=== PATIENT | female | born 2000 | race Caucasian/White ===

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

== ENCOUNTER → 2019-05-01 | Outpatient (CLI) | payer OTHER ==
[2019-05-02 12:01] LABS: Candida species (DNA Probe) Negative (NEGATIVE); G. vaginalis (DNA Probe) Positive (NEGATIVE); T. vaginalis (DNA Probe) Negative (NEGATIVE)
[2019-05-03 15:18] LABS: HPV 16 Negative (Negative); HPV 18 Negative (Negative); HPV OTHER HR TYPES Negative (Negative)
== END ==
LOC: LAB 14:08 → LAB SHORT 14:08
PROVIDERS: Nurse Practitioner Family
DX: Z00.00 Encounter for general adult medical examination without abnormal findings (principal); N93.9 Abnormal uterine and vaginal bleeding, unspecified
CPT/HCPCS: 87480; 87510; 87624; 87660; G0145

== ENCOUNTER 2019-06-09 15:44 | Emergency (ER) | payer BC, OTHER ==
[~2019-06-09] VITALS: Ht 162.6 cm; Wt 61.2 kg
== END 2019-06-09 21:39 | disposition home or self-care (01) ==
LOC: ER 15:44
DX: R51 Headache (principal); Z88.2 Allergy status to sulfonamides; Z88.8 Allergy status to other drugs, medicaments and biological substances
CPT/HCPCS: 36415; 96361; 96374; 96375; 99283-25; J1100; J1200; J1885; J2765; J7030

== ENCOUNTER → 2021-11-05 | Outpatient (CLI) | payer OTHER ==
[2021-11-07 16:10] LABS: CHLAMYDIA TRACHOMATIS, NAA Negative (Negative)
== END | disposition home or self-care (01) ==
LOC: LAB 16:58 → LAB SHORT 16:58
PROVIDERS: Advanced Practice Midwife
DX: Z01.419 Encounter for gynecological examination (general) (routine) without abnormal findings (principal); Z11.3 Encounter for screening for infections with a predominantly sexual mode of transmission
CPT/HCPCS: 87491; 87591; G0123

== ENCOUNTER 2022-03-16 21:38 | Emergency (ER) | payer OTHER ==
[~2022-03-16] VITALS: Ht 162.6 cm; Wt 68.0 kg
[~2022-03-16 21:38] MED LIST: METPRE4DP PO
[2022-03-16 22:12] LABS: Source, Urine Clean Catch
[2022-03-16 22:20] LABS: Bilirubin, Urine Neg (Neg); Blood, Urine 4+ (Neg); Glucose Qualitative, Urine Neg (Neg); Ketones, Urine Neg (Neg); Leukocyte Esterase, Urine 3+ (Neg); Nitrite, Urine Neg (Neg); Protein, Urine 2+ (Neg); Urobilinogen, Urine NORM (Normal)
[2022-03-16 22:27] LABS: Appearance, Urine Cloudy (Clear); Color, Urine Pale Yellow (P-Yellow)
[2022-03-16 22:30] LABS: Hyaline Casts 0-2 /lpf (0-2); White Blood Cells, Urine 50-100 /hpf (0-5)
[2022-03-16 22:31] LABS: Bacteria Many /hpf; Squamous Epithelial Cells Rare /hpf (Few)
[2022-03-16] MEDS ORDERED: Pyridium100 MG PO (22:39)
[2022-03-16] MEDS ORDERED: Macrobid 100 M100 MG PO (22:39)
== END 2022-03-16 22:50 | disposition home or self-care (01) ==
LOC: ER 21:38
PROVIDERS: Student in an Organized Health Care Education/Training Program
DX: N39.0 Urinary tract infection, site not specified (principal); Z88.1 Allergy status to other antibiotic agents; Z88.2 Allergy status to sulfonamides
CPT/HCPCS: 81001; A9270

== ENCOUNTER → 2022-12-17 | Outpatient (CLI) | payer OTHER ==
[~2022-12-17] MED LIST changes: +Macrobid 100 M100 MG PO; +Pyridium100 MG PO
[2022-12-24 23:07] LABS: HPV APTIMA Positive (Negative); HPV GENOTYPE 16 Negative (Negative)
== END ==
LOC: LAB SHORT 15:41 → LAB 15:41
PROVIDERS: Advanced Practice Midwife
DX: Z01.419 Encounter for gynecological examination (general) (routine) without abnormal findings (principal)
CPT/HCPCS: G0145

== ENCOUNTER → 2023-12-27 | Outpatient (CLI) | payer OTHER | LOC: LAB 15:03 → LAB SHORT 15:03 | PROVIDERS: Advanced Practice Midwife | DX: Z01.419 Encounter for gynecological examination (general) (routine) without abnormal findings (principal) | CPT/HCPCS: G0123 ==

== ENCOUNTER 2024-08-20 13:22 | Emergency (ER) | payer OTHER ==
[~2024-08-20] VITALS: Ht 162.6 cm; Wt 88.5 kg
[2024-08-20] MEDS ORDERED: Vitamin D1000 UNI1 (13:39)
[2024-08-20] MEDS ORDERED: ZOLOFT50 MG PO (13:39)
[2024-08-20 16:02] VITALS: BP 127/89
== END 2024-08-20 16:02 | disposition home or self-care (01) ==
LOC: ER 13:22
DX: R51.9 Headache, unspecified (principal); Z79.899 Other long term (current) drug therapy; Z88.1 Allergy status to other antibiotic agents
CPT/HCPCS: 70450; 99284-25

== ENCOUNTER → 2025-01-02 | Outpatient (CLI) | payer OTHER ==
[~2025-01-02] MED LIST changes: +Vitamin D1000 UNI1; +ZOLOFT50 MG PO
== END ==
LOC: LAB SHORT 14:46 → LAB 14:46
PROVIDERS: Advanced Practice Midwife
DX: Z01.419 Encounter for gynecological examination (general) (routine) without abnormal findings (principal)
CPT/HCPCS: G0123

== ENCOUNTER 2025-06-07 07:37 | Emergency (ER) | payer OTHER ==
[~2025-06-07] VITALS: Ht 162.6 cm; Wt 81.7 kg
[2025-06-07] MEDS ORDERED: NS 1,000 ML IV SCH (08:50)
[2025-06-07] MEDS ORDERED: Prochlorperazine Edisylate 10 mg Vial IV ONE (08:50)
[2025-06-07] MEDS ORDERED: DiphenhydrAMINE HCl 50 MG/ML 1ML Vial IV ONE (08:50)
[2025-06-07] MEDS ORDERED: Ketorolac Tromethamine 15mg Vial IV ONE (08:50)
[2025-06-07 10:00] VITALS: BP 127/72
== END 2025-06-07 10:09 | disposition home or self-care (01) ==
LOC: ER 07:37
DX: G43.909 Migraine, unspecified, not intractable, without status migrainosus (principal); Z88.2 Allergy status to sulfonamides; Z88.8 Allergy status to other drugs, medicaments and biological substances; Z79.899 Other long term (current) drug therapy; Z79.2 Long term (current) use of antibiotics
CPT/HCPCS: 96361; 96374; 96375; 99283; J0780; J1200; J1885; J7030